=== PATIENT | female | born 1995 | race Caucasian/White ===

== ENCOUNTER 2016-12-03 10:08 | Emergency (ER) | payer OTHER ==
[~2016-12-03] VITALS: Ht 144.8 cm; Wt 98.0 kg
[~2016-12-03 10:08] MED LIST: AMOXICILLIN500 MG PO; BACTRIM DS1 TAB PO; FERR SULFATE325 MG; FERR SULFATE325 MG PO; IBUPROFEN600 MG PO; IRON325 M1 PO; MACRODANTIN100 MG PO; METRONIDAZOL500 MG PO; NAPROSYN500 MG PO; NITROFURANTN100 MG PO; OMEPRAZOLE20 MG PO; PENICILLN VK500 MG PO; PRE-NATAL; PRENATAL1 TA1 PO; PRENATAL3 PO; PROMETHAZINE25 MG PO; SEASONIQUE PO; TYLENOL325 MG PO; ZOFRAN ODT4 MG PO; [UNRECOGNIZED DRUG - OTHER]; no home meds
[2016-12-03] MEDS ORDERED: PENICILLN VK500 MG PO (10:28)
[2016-12-03] MEDS ORDERED: TESSALON PER100 MG PO (10:28)
[2016-12-03 10:35] VITALS: BP 121/79
== END 2016-12-03 10:35 | disposition home or self-care (01) | DRG 153 ==
LOC: ED 10:08
DX: J02.9 Acute pharyngitis, unspecified (principal); R05 Cough

== ENCOUNTER 2016-12-20 12:04 | Emergency (ER) | payer OTHER ==
[~2016-12-20] VITALS: Ht 147.3 cm; Wt 90.9 kg
[~2016-12-20 12:04] MED LIST changes: +TESSALON PER100 MG PO
[2016-12-20 13:04] LABS: URINE BILIRUBIN - DIPSTICK NEGATIVE (NEGATIVE); URINE BLOOD DIPSTICK NEGATIVE (NEGATIVE); URINE CLARITY CLEAR; URINE COLOR YELLOW; URINE GLUCOSE - DIPSTICK NEGATIVE (NEGATIVE); URINE KETONE NEGATIVE (NEGATIVE); URINE NITRITE - DIPSTICK NEGATIVE (Negative); URINE PH 7.5 (4.5-8.0); URINE PROTEIN - DIPSTICK NEGATIVE (NEG-TRACE); URINE SPECIFIC GRAVITY 1.015; URINE UROBILINOGEN - DIPSTICK 0.2 E.U./dL (0.2)
[2016-12-20 13:18] LABS: URINE LEUK ESTERASE TRACE (NEGATIVE)
[2016-12-20] MEDS ORDERED: ZOFRAN4 MG/TAB PO (13:24)
[2016-12-20 13:25] VITALS: BP 120/63
== END 2016-12-20 13:30 | disposition home or self-care (01) | DRG 392 ==
LOC: ED 12:04
PROVIDERS: Emergency Medicine
DX: R11.0 Nausea (principal)

== ENCOUNTER 2017-01-28 14:45 | Emergency (ER) | payer OTHER ==
[~2017-01-28] VITALS: Ht 147.3 cm; Wt 100.0 kg
[~2017-01-28 14:45] MED LIST changes: +ZOFRAN4 MG/TAB PO
[2017-01-28 15:41] VITALS: BP 131/64
== END 2017-01-28 15:46 | disposition home or self-care (01) | DRG 812 ==
LOC: ED 14:45
DX: D64.9 Anemia, unspecified (principal); E28.2 Polycystic ovarian syndrome; N92.5 Other specified irregular menstruation

== ENCOUNTER 2017-02-05 17:53 | Emergency (ER) | payer OTHER ==
[~2017-02-05] VITALS: Ht 147.3 cm; Wt 100.0 kg
[2017-02-05 19:05] LABS: HEMATOCRIT 33.7 % (37.0-47.0); HEMOGLOBIN 10.7 g/dl (12.0-16.0); IMMATURE GRANULOCYTES 0.2 % (0.0-1.0); MEAN CELL VOLUME 78.7 fL CALC (80.0-100.0); MEAN CORPUSCULAR HGB CONC 31.8 g/L CALC (32.0-36.0); NEUT# 6.9 thou/uL (2.00-7.15); RED BLOOD COUNT 4.28 mill/uL (4.20-5.60); RED CELL DISTRI WIDTH 14.8 % (11.5-15.5)
[2017-02-05 19:20] LABS: ALKALINE PHOSPHATASE 70 u/l (38-126); AMYLASE 30 u/l (30-110); ANION GAP 14 (6-22 (CALC)); BILIRUBIN, TOTAL 0.4 mg/dL (0.0-1.4); BUN 14 mg/dL (7-17); BUN/CREATININE RATIO 21 (12-20 (CALC)); CALCIUM 8.8 mg/dL (8.4-10.2); CARBON DIOXIDE 25 mmol/l (22-30); CHLORIDE 105 mmol/l (95-108); CREATININE 0.6 mg/dL (0.5-1.0); GFR > 60 ML/MIN (>=60 (CALC)); GFR FOR AFR.AMER. > 60 ML/MIN (>=60 (CALC)); GLUCOSE 94 mg/dL (65-105); LIPASE 64 u/l (23-300); POTASSIUM 3.9 mmol/l (3.5-5.1); SGOT/AST 22 u/l (14-36); SGPT/ALT 33 u/l (9-52); SODIUM 140 mmol/l (137-146); TOTAL PROTEIN 7.1 g/dL (6.3-8.2)
[2017-02-05 19:44] VITALS: BP 112/70
== END 2017-02-05 19:38 | disposition home or self-care (01) | DRG 392 ==
LOC: ED 17:53
PROVIDERS: Emergency Medicine
DX: R10.9 Unspecified abdominal pain (principal); R11.0 Nausea

== ENCOUNTER 2017-05-10 20:35 | Emergency (ER) | payer OTHER ==
[~2017-05-10] VITALS: Ht 147.3 cm; Wt 102.2 kg
[2017-05-10 21:27] LABS: INFLUENZA A NONE DETECTED (NONE DETECT); INFLUENZA B NONE DETECTED (NONE DETECT)
[2017-05-10 21:42] LABS: HEMATOCRIT 35.9 % (37.0-47.0); HEMOGLOBIN 11.7 g/dl (12.0-16.0); IMMATURE GRANULOCYTES 0.3 % (0.0-1.0); MEAN CELL VOLUME 78.7 fL CALC (80.0-100.0); MEAN CORPUSCULAR HGB 25.7 pG CALC (26.0-32.0); MEAN CORPUSCULAR HGB CONC 32.6 g/L CALC (32.0-36.0); NEUT# 10.67 thou/uL (2.00-7.15); RED BLOOD COUNT 4.56 mill/uL (4.20-5.60); RED CELL DISTRI WIDTH 14.5 % (11.5-15.5)
[2017-05-10 21:51] LABS: ALBUMIN 4.6 g/dL (3.2-5.0); ALKALINE PHOSPHATASE 76 u/l (38-126); ANION GAP 18 (6-22 (CALC)); BILIRUBIN, TOTAL 0.5 mg/dL (0.0-1.4); BUN 14 mg/dL (7-17); BUN/CREATININE RATIO 17 (12-20 (CALC)); CARBON DIOXIDE 22 mmol/l (22-30); CHLORIDE 101 mmol/l (95-108); CREATININE 0.8 mg/dL (0.5-1.0); GFR > 60 ML/MIN (>=60 (CALC)); GFR FOR AFR.AMER. > 60 ML/MIN (>=60 (CALC)); GLUCOSE 104 mg/dL (65-105); POTASSIUM 3.5 mmol/l (3.5-5.1); SGOT/AST 22 u/l (14-36); SGPT/ALT 37 u/l (9-52); SODIUM 137 mmol/l (137-146); TOTAL PROTEIN 8.4 g/dL (6.3-8.2)
[2017-05-10] MEDS ORDERED: PENICILLN VK500 MG PO (22:34)
[2017-05-10 23:30] VITALS: BP 103/56
[2017-05-11 00:53] LABS: URINE BLOOD DIPSTICK TRACE-INTACT (NEGATIVE); URINE CLARITY CLEAR; URINE COLOR YELLOW; URINE GLUCOSE - DIPSTICK NEGATIVE (NEGATIVE); URINE KETONE NEGATIVE (NEGATIVE); URINE NITRITE - DIPSTICK NEGATIVE (Negative); URINE PROTEIN - DIPSTICK 30 mg/dL (NEG-TRACE); URINE SPECIFIC GRAVITY >=1.030; URINE UROBILINOGEN - DIPSTICK 0.2 E.U./dL (0.2)
[2017-05-11 00:57] LABS: URINE BILIRUBIN - DIPSTICK NEGATIVE (NEGATIVE); URINE LEUK ESTERASE SMALL (NEGATIVE)
[2017-05-11 01:06] LABS: URINE BACTERIA MODERATE hpf; URINE SQUAMOUS EPITHELIAL CELL MODERATE EPI/hpf (0-FEW); URINE TRICHOMONAS FEW hpf
== END 2017-05-10 23:32 | disposition home or self-care (01) | DRG 864 ==
LOC: ED 20:35
PROVIDERS: Emergency Medicine
DX: R50.9 Fever, unspecified (principal); J02.0 Streptococcal pharyngitis; R11.2 Nausea with vomiting, unspecified; R53.81 Other malaise

== ENCOUNTER 2017-11-26 15:43 | Emergency (ER) | payer OTHER ==
[~2017-11-26] VITALS: Ht 147.3 cm; Wt 90.0 kg
[2017-11-26 16:52] LABS: HEMATOCRIT 35.3 % (37.0-47.0); HEMOGLOBIN 11.1 g/dl (12.0-16.0); IMMATURE GRANULOCYTES 0.3 % (0.0-1.0); MEAN CELL VOLUME 78.3 fL CALC (80.0-100.0); MEAN CORPUSCULAR HGB 24.6 pG CALC (26.0-32.0); MEAN CORPUSCULAR HGB CONC 31.4 g/L CALC (32.0-36.0); NEUT# 4.88 thou/uL (2.00-7.15); RED BLOOD COUNT 4.51 mill/uL (4.20-5.60); RED CELL DISTRI WIDTH 14.8 % (11.5-15.5)
[2017-11-26 17:08] LABS: INFLUENZA A NONE DETECTED (NONE DETECT); INFLUENZA B NONE DETECTED (NONE DETECT)
[2017-11-26 17:09] LABS: ALKALINE PHOSPHATASE 68 u/l (38-126); ANION GAP 17 (6-22 (CALC)); BILIRUBIN, TOTAL 0.2 mg/dL (0.0-1.4); BUN 11 mg/dL (7-17); BUN/CREATININE RATIO 12 (12-20 (CALC)); CARBON DIOXIDE 24 mmol/l (22-30); CHLORIDE 105 mmol/l (95-108); CREATININE 0.9 mg/dL (0.5-1.0); GFR > 60 ML/MIN (>=60 (CALC)); GFR FOR AFR.AMER. > 60 ML/MIN (>=60 (CALC)); SGOT/AST 19 u/l (14-36); SGPT/ALT 23 u/l (9-52); SODIUM 142 mmol/l (137-146)
[2017-11-26] MEDS ORDERED: ZITHROMAX250 MG PO (17:30)
[2017-11-26] MEDS ORDERED: PROVENTIL108 MCG/AC IN (17:30)
[2017-11-26 17:35] VITALS: BP 119/79
== END 2017-11-26 17:40 | disposition home or self-care (01) | DRG 153 ==
LOC: ED 15:43
PROVIDERS: Emergency Medicine
DX: J06.9 Acute upper respiratory infection, unspecified (principal); M79.1 Myalgia; R05 Cough; R09.81 Nasal congestion; R50.9 Fever, unspecified; R19.7 Diarrhea, unspecified; R61 Generalized hyperhidrosis

== ENCOUNTER 2018-02-06 17:30 | Emergency (ER) | payer OTHER ==
[~2018-02-06] VITALS: Ht 147.3 cm; Wt 100.0 kg
[~2018-02-06 17:30] MED LIST changes: +PROVENTIL108 MCG/AC IN; +ZITHROMAX250 MG PO
[2018-02-06 17:49] VITALS: BP 135/68
== END 2018-02-06 18:10 | disposition left against medical advice (07) | DRG 951 ==
LOC: ED 17:30 → LWOBS 18:10
DX: Z91.19 Patient's noncompliance with other medical treatment and regimen (principal)

== ENCOUNTER → 2018-11-19 | Outpatient (REF) | payer OTHER ==
[~2018-11-19] MED LIST changes: +IBUPROFEN200 MG PO
[2018-11-19 17:04] LABS: HEMATOCRIT 36.2 % (37.0-47.0); HEMOGLOBIN 11.3 g/dl (12.0-16.0); IMMATURE GRANULOCYTES 0.2 % (0.0-5.0); MEAN CELL VOLUME 80.8 fL CALC (80.0-100.0); MEAN CORPUSCULAR HGB 25.2 pG CALC (26.0-32.0); MEAN CORPUSCULAR HGB CONC 31.2 g/L CALC (32.0-36.0); NEUT# 5.25 thou/uL (2.00-7.15); RED BLOOD COUNT 4.48 mill/uL (4.20-5.60); RED CELL DISTRI WIDTH 14.8 % (11.5-15.5)
[2018-11-19 17:26] LABS: ALBUMIN 4.4 g/dL (3.2-5.0); ALKALINE PHOSPHATASE 66 u/l (38-126); ANION GAP 16 (6-22 (CALC)); BILIRUBIN, TOTAL 0.3 mg/dL (0.0-1.4); BUN 15 mg/dL (7-17); BUN/CREATININE RATIO 20 (12-20 (CALC)); CARBON DIOXIDE 24 mmol/l (22-30); CHLORIDE 102 mmol/l (95-108); CREATININE 0.8 mg/dL (0.5-1.0); GFR > 60 ML/MIN (>=60 (CALC)); GFR FOR AFR.AMER. > 60 ML/MIN (>=60 (CALC)); POTASSIUM 4.1 mmol/l (3.5-5.1); SGOT/AST 19 u/l (14-36); SODIUM 138 mmol/l (137-146); TOTAL PROTEIN 7.4 g/dL (6.3-8.2)
== END | disposition home or self-care (01) ==
LOC: LAB 16:10
PROVIDERS: ATTEND Nurse Practitioner Family
DX: E03.9 Hypothyroidism, unspecified (principal); D50.9 Iron deficiency anemia, unspecified; R60.0 Localized edema

== ENCOUNTER 2019-02-18 15:23 | Emergency (ER) | payer OTHER ==
[~2019-02-18] VITALS: Ht 149.9 cm; Wt 100.0 kg
[2019-02-18] MEDS ORDERED: PENICILLN VK500 MG PO (15:59)
[2019-02-18 16:06] VITALS: BP 124/79
== END 2019-02-18 16:11 | disposition home or self-care (01) ==
LOC: ED 15:23
DX: K04.7 Periapical abscess without sinus (principal); K08.89 Other specified disorders of teeth and supporting structures

== ENCOUNTER 2020-10-08 11:45 | Emergency (ER) | payer OTHER | END 2020-10-08 12:08 | disposition left against medical advice (07) | DRG 951 | LOC: ED 11:45 → LWOBS 12:07 | DX: Z53.21 Procedure and treatment not carried out due to patient leaving prior to being seen by health care provider (principal) ==

== ENCOUNTER 2021-10-26 22:18 | Emergency (ER) | payer OTHER ==
[~2021-10-26] VITALS: Ht 147.3 cm; Wt 110.0 kg
[2021-10-26] MEDS ORDERED: HYDROCO/APAP1 TA9 PO (23:24)
[2021-10-26 23:31] VITALS: BP 126/67
== END 2021-10-26 23:40 | disposition home or self-care (01) ==
LOC: ED 22:18
DX: S62.663A Nondisplaced fracture of distal phalanx of left middle finger, initial encounter for closed fracture (principal); W23.0XXA Caught, crushed, jammed, or pinched between moving objects, initial encounter

== ENCOUNTER 2022-09-06 18:39 | Emergency (ER) | payer OTHER ==
[2022-09-06] VITALS (10 sets, daily range): BP systolic 121–143; BP diastolic 76–98
[~2022-09-06] VITALS: Ht 147.3 cm; Wt 110.0 kg
[~2022-09-06 18:39] MED LIST changes: +HYDROCO/APAP1 TA9 PO
== END 2022-09-06 23:58 | disposition left against medical advice (07) ==
LOC: ED 18:39
DX: B34.9 Viral infection, unspecified (principal); Z53.29 Procedure and treatment not carried out because of patient's decision for other reasons

== ENCOUNTER 2022-11-06 19:15 | Emergency (ER) | payer OTHER ==
[~2022-11-06] VITALS: Ht 149.9 cm; Wt 106.0 kg
[2022-11-06 19:24] VITALS: BP 149/91
[2022-11-06 19:30] VITALS: BP 139/94
[2022-11-06 19:45] VITALS: BP 134/90
[2022-11-06] MEDS ORDERED: PENICILLN VK500 MG PO (19:56)
[2022-11-06] MEDS ORDERED: ULTRAM50 MG PO (19:56)
[2022-11-06 20:00] VITALS: BP 127/82
[2022-11-06 20:15] VITALS: BP 121/75
== END 2022-11-06 20:35 | disposition home or self-care (01) ==
LOC: ED 19:15
DX: K02.9 Dental caries, unspecified (principal)

== ENCOUNTER 2024-05-05 20:29 | Emergency (ER) | payer SELFPAY ==
[~2024-05-05] VITALS: Ht 149.9 cm; Wt 88.4 kg
[~2024-05-05 20:29] MED LIST changes: +ULTRAM50 MG PO
[2024-05-05] MEDS ORDERED: AMOXICILLIN TRIHYDRATE 500 MG/CAP PO ONE (21:05)
[2024-05-05] MEDS ORDERED: NAPROXEN 250 MG/TAB PO ONE (21:05)
[2024-05-05] MEDS ORDERED: Acetaminophen 300 MG/Codeine 30 MG/COMBO PO ONE (21:05)
[2024-05-05] MEDS ORDERED: AMOXICILLIN500 MG PO (21:07)
[2024-05-05] MEDS ORDERED: NAPROXEN375 MG PO (21:07)
[2024-05-05 21:11] VITALS: BP 142/86
== END 2024-05-05 21:25 | disposition home or self-care (01) | DRG 159 ==
LOC: ED 20:29
DX: K04.7 Periapical abscess without sinus (principal); K02.9 Dental caries, unspecified